=== PATIENT | male | born 1990 ===

== ENCOUNTER 2016-09-05 21:40 | Emergency (ER) | payer OTHER ==
[2016-09-05 21:41] VITALS: BMI 25.7
--- NOTE | 2016-09-05 23:56 | C.PDOC ---
History Of Present Illness 26 y/o male presents to the ED for evaluation of back pain which began yesterday. Patient states his symptoms began after he lifted heavy groceries yesterday. He notes his pain is worse with movement. Patient took some NyQuil last night so he could fall asleep, but found minimal relief. He denies fever, chills, urinary/bowel incontinence, upper/lower extremity numbness/weakness. Time Seen by Provider: 09/05/16 22:54 Chief Complaint (Nursing): Back Pain History Per: Patient History/Exam Limitations: no limitations Onset/Duration Of Symptoms: Hrs Current Symptoms Are (Timing): Still Present Quality Of Discomfort: "Pain" Previous Symptoms: Back Pain Associated Symptoms: denies: Incontinence, New Weakness, New Numbness Exacerbating Factor(s): Movement Additional History Per: Patient Past Medical History Reviewed: Historical Data, Nursing Documentation, Vital Signs Vital Signs: Last Vital Signs Temp 97.6 F 09/06/16 00:09 Pulse 60 09/06/16 00:09 Resp 18 09/06/16 00:09 BP 108/72 09/06/16 00:09 Pulse Ox 97 09/06/16 04:20 - Medical History PMH: Asthma, HTN (x3 years w/o taking medications ) Surgical History: Appendectomy - [facility] Procedures NEBULIZER THERAPY (02/19/04) Family History: States: Unknown Family Hx - Social History Hx Tobacco Use: No Hx Alcohol Use: No Hx Substance Use: No - Immunization History Hx Tetanus Toxoid Vaccination: Yes (up to date) Hx Influenza Vaccination: No Hx Pneumococcal Vaccination: No Review Of Systems Genitourinary: Negative for: Incontinence Musculoskeletal: Positive for: Back Pain Neurological: Negative for: Weakness, Numbness Physical Exam - Physical Exam Appears: Non-toxic, No Acute Distress Skin: Normal Color, Warm, Dry Head: Atraumatic Eye(s): bilateral: Normal Inspection Oral Mucosa: Moist Neck: Supple Chest: Symmetrical, No Deformity Gastrointestinal/Abdominal: Soft, No Tenderness, No Guarding, No Rebound Back: Paraspinal Tenderness (paralumbar, bilaterally ) Extremity: Normal ROM, No Tenderness, Capillary Refill (less than 2 seconds ), No Deformity, No Swelling Pulses: Left Dorsalis Pedis: Normal, Right Dorsalis Pedis: Normal Neurological/Psych: Normal Speech, Normal Cognition, Normal Motor, Normal Sensation Gait: Steady ED Course And Treatment O2 Sat by Pulse Oximetry: 97 (on RA) Pulse Ox Interpretation: Normal Progress Note: Patient received Flexeril PO and Motrin PO. On reassessment, patient is resting comfortably, showing no signs of distress and reports an improvement of his symptoms. Patient is ambulatory in the ED and is stable for discharge. Patient is advised to follow up with his PMD within 1-2 days for further evaluation. Disposition Counseled Patient/Family Regarding: Diagnosis, Need For Followup, Rx Given - Disposition Referrals: Bhargavi Villasenor MD [Medical Doctor] - Disposition: HOME/ ROUTINE Disposition Time: 23:53 Condition: STABLE Additional Instructions: Please follow upin clinic TAke meds as directed Return to ER if worse Prescriptions: Cyclobenzaprine [Cyclobenzaprine HCl] 10 mg PO HS #7 tab Ibuprofen [Motrin] 600 mg PO Q6H #30 tab Instructions: Muscle Strain (ED) Print Language: PORTUGUESE - Clinical Impression Clinical Impression: Low back strain - PA / [employer] INST[employer]ER / Resident Statement MD/DO has reviewed & agrees with the documentation as recorded. - Scribe Statement The provider has reviewed the documentation as recorded by the Scribe (Mary Beth Myles) All medical record entries made by the Scribe were at my direction and personally dictated by me. I have reviewed the chart and agree that the record accurately reflects my personal performance of the history, physical exam, medical decision making, and the department course for this patient. I have also personally directed, reviewed, and agree with the discharge instructions and disposition.
[2016-09-06 00:11] VITALS: BP 108/72; PULSE 60; RESP 18; TEMP 97.6
[2016-09-06 03:59] VITALS: O2SAT 97
== END 2016-09-06 00:10 | disposition home or self-care (01) ==
LOC: C.ER 21:40
DX: S39.012A Strain of muscle, fascia and tendon of lower back, initial encounter (principal); X50.0XXA Overexertion from strenuous movement or load, initial encounter

== ENCOUNTER 2018-07-24 06:36 | Day surgery (SDC) | payer OTHER ==
[2018-06-18 10:48] VITALS: BMI 31.8
[2018-07-24] MEDS ORDERED: ceFAZolin 1 gm in NS 1 GM/100 ML BAG IVPB ONE ×2 (07:49→08:57)
[2018-07-24] MEDS ORDERED: Dextrose 5%/0.45% NS 1,000 ML IV SCH (08:30)
[2018-07-24] MEDS ORDERED: Morphine 10 mg/5 ml Oral Soln PO PRN (08:30)
[2018-07-24] MEDS ORDERED: Succinylcholine Chloride 20 mg/ml Syr (5 ml) IV ONE (08:51)
[2018-07-24] MEDS ORDERED: Midazolam 2 MG/2 ML VIAL ONE (08:51)
[2018-07-24] MEDS ORDERED: Propofol 10 mg/ml Inj (20 ML) ONE (08:51)
[2018-07-24] MEDS ORDERED: HYDROmorphone 0.5 mg/0.5 ml ISec IVP PRN (09:25)
[2018-07-24 10:50] VITALS: TEMP 97.6
[2018-07-24 11:41] VITALS: BP 117/74; PULSE 70; RESP 17; O2SAT 97
--- NOTE | 2018-07-24 19:09 | OP ---
PROCEDURE DATE: 07/24/2018 PREOPERATIVE DIAGNOSIS: Chronic tonsillitis. POSTOPERATIVE DIAGNOSIS: Chronic tonsillitis. PROCEDURE: Tonsillectomy. SIGNIFICANT FINDINGS : 2+ tonsils. DESCRIPTION OF PROCEDURE: The patient was brought into room, placed in supine position. Anesthesia was initiated through an ET tube. The patient was draped in usual manner. 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 Right tonsil was grabbed, pulled medially. Incision was made in the anterior tonsillar pillar using coblation. Dissection was done between tonsil and tonsillar fossa using coblation until the tonsil was removed. Bleeding was controlled using coblation. Next, the other tonsil was grabbed, pulled medially. Incision was made in the anterior tonsillar pillar using coblation. Dissection was done between tonsil and tonsillar fossa using coblation until the tonsil was removed. Bleeding was controlled using coblation. Both tonsillar beds were rubbed vigorously with coblation wand. No bleeding was noted. Mouth gag was let down for 30 seconds, put backup, no bleeding was noted. Mouth gag was taken out and removed. The patient was taken off anesthesia and taken to recovery room in stable manner. Jaret Rosales MD
== END 2018-07-24 11:22 | disposition home or self-care (01) ==
LOC: C.SDS 06:36
PROVIDERS: ATTEND Otolaryngology
DX: J35.01 Chronic tonsillitis (principal)
CPT/HCPCS: 42826; 88304; J0690; J1100; J1170; J2001; J2250; J2704; J3010; J7040; J7120